=== PATIENT | female | born 1955 | race Caucasian/White ===

== ENCOUNTER → 2023-11-06 14:29 | Outpatient (REF) | payer MEDICARE, SELFPAY | LOC: WDC 14:29 | PROVIDERS: ATTENDING PHYSICIAN Family Medicine | DX: Z12.31 Encounter for screening mammogram for malignant neoplasm of breast (principal) | CPT/HCPCS: 77063; 77067 ==

== ENCOUNTER → 2024-03-11 13:39 | Outpatient (REF) | payer MEDICARE, SELFPAY | LOC: WDC 13:39 | PROVIDERS: ATTENDING PHYSICIAN Family Medicine | DX: R92.2 Inconclusive mammogram (principal); R92.30 Dense breasts, unspecified | CPT/HCPCS: 76641 ==

== ENCOUNTER → 2024-11-11 14:09 | Outpatient (REF) | payer MEDICARE, SELFPAY | LOC: WDC 14:09 | PROVIDERS: ATTENDING PHYSICIAN Family Medicine | DX: Z12.31 Encounter for screening mammogram for malignant neoplasm of breast (principal) | CPT/HCPCS: 77063; 77067 ==

== ENCOUNTER → 2025-04-28 14:19 | Outpatient (REF) | payer MEDICARE, SELFPAY | LOC: WDC 14:19 | PROVIDERS: ATTENDING PHYSICIAN Family Medicine | DX: R92.30 Dense breasts, unspecified (principal) | CPT/HCPCS: 76641 ==

== ENCOUNTER → 2025-08-04 10:22 | Outpatient (REF) | payer MEDICARE, SELFPAY | LOC: RAD 10:22 | PROVIDERS: ATTENDING PHYSICIAN Family Medicine | DX: E03.9 Hypothyroidism, unspecified (principal); M81.0 Age-related osteoporosis without current pathological fracture; Z78.0 Asymptomatic menopausal state | CPT/HCPCS: 77080 ==